=== PATIENT | male | born 1970 ===

== ENCOUNTER 2022-03-25 12:30 | Inpatient (IN) | payer OTHER ==
[~2022-03-25] VITALS: Ht 180.3 cm; Wt 90.7 kg
[2022-03-31] MEDS ORDERED: METOPROLOL SUCC50 MG PO (08:00)
[2022-03-31] MEDS ORDERED: LOSARTAN POTASS50 MG PO (08:00)
== END 2022-04-03 12:05 | disposition home or self-care (01) | DRG 331 ==
LOC: O/R 03-31 05:55 → SURH 03-31 05:55 → SURG 03-31 11:15 → SURH 04-03 12:05
PROVIDERS: ADMIT Surgery; ATTEND Surgery
PROC: 0DBP4ZZ Excision of Rectum, Percutaneous Endoscopic Approach (ICD-10-PCS; 2022-03-31)
PROC: 0DJD8ZZ Inspection of Lower Intestinal Tract, Via Natural or Artificial Opening Endoscopic (ICD-10-PCS; 2022-03-31)
PROC: 0DTN4ZZ Resection of Sigmoid Colon, Percutaneous Endoscopic Approach (ICD-10-PCS; principal; 2022-03-31 11:15)
DX: K57.32 Diverticulitis of large intestine without perforation or abscess without bleeding (principal); Z20.822 Contact with and (suspected) exposure to COVID-19